=== PATIENT | male | born 1950 ===

== ENCOUNTER → 2016-06-27 | Day surgery (SDC) | payer BC ==
[~2016-06-27] MED LIST: ACETAMINOPHEN/HYDROcodone 325 MG/5 MG TAB ONE; BUPIVACAINE/EPINEPHRINE 0.25% PF 10 ML VIAL ONE; KETOROLAC TROMETHAMINE 30 MG/ML (IVP) VIAL IV PUSH ONE; LACTATED RINGER'S 1000 ML INJ 1,000 ML ONE; MIDAZOLAM HCL 2 MG/2 ML VIAL ONE; ONDANSETRON HCL 4 MG/2 ML VIAL IV PUSH ONE; PROPOFOL 200 MG/20 ML AMP IV ONE; ceFAZolin INJ 1,000 MG VIAL ONE
--- NOTE | 2016-06-27 16:57 | TN ---
cc: CAN SANCHEZ DATE OF SURGERY 06/27/16 PREOPERATIVE DIAGNOSIS 1. Internal derangement of the left knee. 2. Probable medial meniscus tear, left knee. 3. Osteophyte, left knee. POSTOPERATIVE DIAGNOSIS 1. Complex tear posterior medial meniscus, left knee. 2. Osteoarthritis, left knee. PROCEDURE 1. Arthroscopy, left knee. 2. Arthroscopic medial meniscectomy. 3. Abrasion chondroplasty medial femoral condyle and medial tibial plateau. SURGEON Can Sanchez MD ANESTHESIA General. ESTIMATED BLOOD LOSS Minimal. INDICATION This is a 65-year-old male with significant left knee pain. Investigative studies are consistent with a torn medial meniscus. Despite conservative care the patient is painful and symptomatic. He presents for surgical treatment. PROCEDURE IN DETAIL The patient was brought to the operating room and anesthetized in the supine position. The left leg was scrubbed with alcohol, followed by Hibiclens, followed Chloraprep and draped sterilely. Antibiotics were given within a 1 hour time window and a time-out was done. Inflow was established anterior and laterally. The knee was inflated. The camera was introduced into the suprapatellar pouch. The retropatellar surface showed minimal changes. There were no loose bodies in the medial or lateral gutters. The medial compartment showed a complex tear of the medial meniscus extending from the 10 o'clock position to the posterior horn. There was grade 2 changes medial tibial plateau and femur, small areas of grade 3 changes were noted. The ACL had a normal appearance. The lateral compartment showed a nearly normal appearance. No significant arthritis in a normal-appearing meniscus. A spinal needle was introduced to the medial joint line. A separate incision was made. Straight and angled punches were used to take meniscus back to stable rim. The meniscal debrider was used to shave the edges and remove the fragments. The wound was irrigated copiously. Hemostasis was controlled. The portals were closed with Steri-Strips and Benzoin. A sterile dressing was applied. The patient was awakened and taken to recovery in satisfactory condition. MD RENETTA Kirkland/ADRIAN /4:22 PM /4:39 PM
== END | disposition home or self-care (01) ==
LOC: ESDC 13:07
PROVIDERS: ATTEND Orthopaedic Surgery Orthopaedic Surgery of the Spine
DX: S83.232A Complex tear of medial meniscus, current injury, left knee, initial encounter (principal); M17.12 Unilateral primary osteoarthritis, left knee
CPT/HCPCS: 01400; 29881; J0690; J1885; J2250; J2405; J3010; J7120